=== PATIENT | male | born 1980 | race Caucasian/White ===

== ENCOUNTER 2020-09-26 01:47 | Emergency (ER) | payer SELFPAY ==
[~2020-09-26] VITALS: Ht 203.2 cm; Wt 118.0 kg
[~2020-09-26 01:47] MED LIST: CLOT15CR23 TP; MUPI22OI2 TP; OXYC1TAB15 PO
[2020-09-26 01:50] VITALS: BP 146/84
[2020-09-26] MEDS ORDERED: AMOX500T PO (02:21)
[2020-09-26] MEDS ORDERED: TRAM-48 PO (02:21)
--- NOTE | 2020-09-26 02:24 | PHYS DOC ---
Past Medical History Past Surgical History: No Surgical History Smoking Status: Current Every Day Smoker Alcohol Use: Heavy General Adult EDM: Chief Complaint: EARACHE/EAR PAIN HPI: HPI: Patient is a 40 year old male presents with a chief complaint of left ear pain x3 days. Patient without complaints of fevers and chills. Review of Systems: Review of Systems: Constitutional: Denies fever or chills. [] Eyes: Denies change in visual acuity. [] HENT: Denies nasal congestion or sore throat. [Positive ear pain] Respiratory: Denies cough or shortness of breath. [] Cardiovascular: Denies chest pain or edema. [] GI: Denies abdominal pain, nausea, vomiting, bloody stools or diarrhea. [] : Denies dysuria. [] Musculoskeletal: Denies back pain or joint pain. [] Integument: Denies rash. [] Neurologic: Denies headache, focal weakness or sensory changes. [] Endocrine: Denies polyuria or polydipsia. [] Lymphatic: Denies swollen glands. [] Psychiatric: Denies depression or anxiety. [] Heart Score: C/O Chest Pain: N/A Risk Factors: Risk Factors: DM, Current or recent (<one month) smoker, HTN, HLP, family history of CAD, obesity. Risk Scores: Score 0 - 3: 2.5% MACE over next 6 weeks - Discharge Home Score 4 - 6: 20.3% MACE over next 6 weeks - Admit for Clinical Observation Score 7 - 10: 72.7% MACE over next 6 weeks - Early Invasive Strategies Allergies: Allergies: Allergies Coded Allergies Type Severity Reaction Last Updated Verified No Known Drug Allergies 09/26/20 No Physical Exam: PE: Constitutional: Well developed, well nourished, no acute distress, non-toxic appearance. [] HENT: Normocephalic, atraumatic, bilateral external ears normal, oropharynx moist, no oral exudates, nose normal. [TM erythema on the left] Eyes: PERRLA, EOMI, conjunctiva normal, no discharge. [] Neck: Normal range of motion, no tenderness, supple, no stridor. [] Cardiovascular:Heart rate regular rhythm, no murmur [] Lungs & Thorax: Bilateral breath sounds clear to auscultation [] Abdomen: Bowel sounds normal, soft, no tenderness, no masses, no pulsatile masses. [] Skin: Warm, dry, no erythema, no rash. [] Back: No tenderness, no CVA tenderness. [] Extremities: No tenderness, no cyanosis, no clubbing, ROM intact, no edema. [] Neurologic: Alert and oriented X 3, normal motor function, normal sensory function, no focal deficits noted. [] Psychologic: Affect normal, judgement normal, mood normal. [] Current Patient Data: Vital Signs: Vital Signs Date Time Temp Pulse Resp B/P (MAP) Pulse Ox O2 Delivery O2 Flow Rate FiO2 09/26/20 01:50 100.4 106 20 146/84 98 Room Air 100.4 EKG: EKG: [] Radiology/Procedures: Radiology/Procedures: [] Course & Med Decision Making: Course & Med Decision Making Pertinent Labs and Imaging studies reviewed. (See chart for details) [] Treated with prescription Amoxil and Ultram Dragon Disclaimer: Dragon Disclaimer: This electronic medical record was generated, in whole or in part, using a voice recognition dictation system. Departure Departure Impression: Primary Impression: Otitis media Disposition: HOME / SELF CARE / HOMELESS Condition: STABLE Referrals: NO PCP (PCP) Patient Instructions: Otitis Media, Adult Scripts Tramadol Hcl (ULTRAM) 50 Mg Tablet 1 TAB PO PRN Q6HRS PRN for pain MDD 4 Tablet(s) for 7 Days, #14 TAB 0 Refills Prov: RAHEEM FERNANDEZ DO 09/26/20 Amoxicillin (AMOXICILLIN) 500 Mg Tablet 1 TAB PO BID, #20 TAB Prov: RAHEEM FERNANDEZ DO 09/26/20 RAHEEM FERNANDEZ DO Sep 26, 2020 02:24
== END 2020-09-26 02:33 | disposition home or self-care (01) ==
LOC: ER 01:47
DX: H66.92 Otitis media, unspecified, left ear (principal); F17.200 Nicotine dependence, unspecified, uncomplicated
CPT/HCPCS: 99283

== ENCOUNTER 2020-12-07 17:02 | Emergency (ER) | payer SELFPAY ==
[~2020-12-07] VITALS: Ht 203.2 cm; Wt 113.0 kg
[~2020-12-07 17:02] MED LIST changes: +AMOX500T PO; +TRAM-48 PO
--- NOTE | 2020-12-07 17:38 | PHYS DOC ---
Past Medical History Past Surgical History: No Surgical History Smoking Status: Current Every Day Smoker Alcohol Use: Heavy General Adult EDM: Chief Complaint: FEVER HPI: HPI: Patient is a 40 year old male who presents to the ED today complaining of fevers, body aches, chills, sore throat, symptoms began today. Patient denies any chest pain or shortness of breath. Reports being unvaccinated from COVID- 19. Review of Systems: Review of Systems: Constitutional: Reports fever, body aches and chills Eyes: Denies change in visual acuity. [] HENT: Reports sore throat. Denies nasal congestion Respiratory: Reports cough denies shortness of breath. [] Cardiovascular: Denies chest pain or edema. [] GI: Denies abdominal pain, nausea, vomiting, bloody stools or diarrhea. [] : Denies dysuria. [] Musculoskeletal: Denies back pain or joint pain. [] Integument: Denies rash. [] Neurologic: Denies headache, focal weakness or sensory changes. [] Psychiatric: Denies depression or anxiety. [] Heart Score: C/O Chest Pain: N/A Risk Factors: Risk Factors: DM, Current or recent (<one month) smoker, HTN, HLP, family history of CAD, obesity. Risk Scores: Score 0 - 3: 2.5% MACE over next 6 weeks - Discharge Home Score 4 - 6: 20.3% MACE over next 6 weeks - Admit for Clinical Observation Score 7 - 10: 72.7% MACE over next 6 weeks - Early Invasive Strategies Allergies: Allergies: Allergies Coded Allergies Type Severity Reaction Last Updated Verified No Known Drug Allergies 09/26/20 No Physical Exam: PE: Constitutional: Well developed, well nourished, no acute distress, non-toxic appearance. [] HENT: Normocephalic, atraumatic, bilateral external ears normal, oropharynx moist, no oral exudates, nose normal. [] Eyes: PERRLA, EOMI, conjunctiva normal, no discharge. [] Neck: Normal range of motion, no tenderness, supple, no stridor. [] Cardiovascular:Heart rate regular rhythm, no murmur [] Lungs & Thorax: Bilateral breath sounds clear to auscultation [] Abdomen: Bowel sounds normal, soft, no tenderness, no masses, no pulsatile masses. [] Skin: Warm, dry, no erythema, no rash. [] Back: No tenderness, no CVA tenderness. [] Extremities: No tenderness, no cyanosis, no clubbing, ROM intact, no edema. [] Neurologic: Alert and oriented X 3, normal motor function, normal sensory function, no focal deficits noted. [] Psychologic: Affect normal, judgement normal, mood normal. [] EKG: EKG: [] Radiology/Procedures: Radiology/Procedures: []PROCEDURE: CHEST AP ONLY EXAMINATION: Chest radiograph. VIEWS: Single view COMPARISON: None INDICATION:40 years, Male, fever FINDINGS: Normal cardiomediastinal silhouette. Subsegmental atelectasis versus scarring in the left lung base. No focal consolidation. No pleural effusion or pneumothorax . No acute osseous process. IMPRESSION: No acute cardiopulmonary process. Electronically signed by: Kaleb Jaquez MD (12/07/2020 6:32 PM) [facility] DICTATED and SIGNED BY: KALEB JAQUEZ MD DATE: 12/07/20 [id number] 0 Course & Med Decision Making: Course & Med Decision Making Pertinent Labs and Imaging studies reviewed. (See chart for details) This a 40-year-old male patient presented to the ED today with fever, sore throat, body aches and chills, symptoms began today. Temperature on arrival to the ED 102.3. Heart rate in the 90s. O2 sats 98% on room air and above. Blood pressure 139/79 Chest x-ray negative for any acute findings, negative influenza AB, negative rapid Covid test. Patient was discharged to home. Instructed to quarantine himself until the PCR Covid test comes back. Supportive care measures like good hand hygiene, pushing fluids and resting recommended. Provided return precautions and discharged in stable condition. Dragon Disclaimer: Dragon Disclaimer: This electronic medical record was generated, in whole or in part, using a voice recognition dictation system. Departure Departure Impression: Primary Impression: Fever Qualified Codes: R50.9 - Fever, unspecified Additional Impressions: Body aches Sore throat Disposition: HOME / SELF CARE / HOMELESS Condition: STABLE Referrals: NO PCP (PCP) follow up with your doctor in 1-2 weeks Patient Instructions: Fever, Adult, [id number] Additional Instructions: You were evaluated in the emergency room, your chest x-ray was negative for any acute findings. You have a pending Covid PCR test. Please quarantine yourself until you get results from us. In the meantime rest, push fluids, maintain good hand hygiene and follow-up with your primary care doctor in 1 to 2 weeks. Come back to the emergency room at any point symptoms worsen Scripts Prednisone (PREDNISONE) 50 Mg Tablet 1 TAB PO DAILY, #4 TAB Prov: JANICE BELLE APRN 12/07/20 JANICE BELLE APRN Dec 07, 2020 17:38
[2020-12-07] MEDS ORDERED: IBUPROFEN 200 MG TABLET. PO ONE (17:45)
[2020-12-07] MEDS ORDERED: predniSONE 20 MG TABLET PO ONE (17:45)
[2020-12-07] MEDS ORDERED: ACETAMINOPHEN 500 MG TABLET PO ONE (17:45)
[2020-12-07 18:17] LABS: INFLUENZA A PATIENT NEGATIVE (NEGATIVE); INFLUENZA B PATIENT NEGATIVE (NEGATIVE)
--- NOTE | 2020-12-07 18:34 | RAD ---
EXAMINATION: Chest radiograph. VIEWS: Single view COMPARISON: None INDICATION:40 years, Male, fever FINDINGS: Normal cardiomediastinal silhouette. Subsegmental atelectasis versus scarring in the left lung base. No focal consolidation. No pleural effusion or pneumothorax. No acute osseous process. IMPRESSION: No acute cardiopulmonary process. Electronically signed by: Kaleb Jaquez MD (12/07/2020 6:32 PM) [facility]
[2020-12-07 19:00] VITALS: BP 109/52
[2020-12-07] MEDS ORDERED: PRED50TA PO (19:13)
--- NOTE | 2020-12-08 15:26 | NUR ---
IP: Patient notified of negative COVID19 test result. Verbalized understanding.
== END 2020-12-07 19:21 | disposition home or self-care (01) ==
LOC: ER 17:02
DX: R50.9 Fever, unspecified (principal); Z20.822 Contact with and (suspected) exposure to COVID-19; M79.10 Myalgia, unspecified site; J02.9 Acute pharyngitis, unspecified; F17.200 Nicotine dependence, unspecified, uncomplicated; F10.20 Alcohol dependence, uncomplicated; Y90.9 Presence of alcohol in blood, level not specified
CPT/HCPCS: 71045; 87426; 87804; 99284; J7512; U0003; U0005

== ENCOUNTER 2020-12-16 22:42 | Emergency (ER) | payer SELFPAY ==
[~2020-12-16] VITALS: Ht 203.2 cm; Wt 113.8 kg
[~2020-12-16 22:42] MED LIST changes: +PRED50TA PO
[2020-12-16 22:45] VITALS: BP 156/79
== END 2020-12-17 00:18 | disposition left against medical advice (07) ==
LOC: ER 22:42
DX: R10.9 Unspecified abdominal pain (principal); R55 Syncope and collapse; R22.40 Localized swelling, mass and lump, unspecified lower limb; Z53.21 Procedure and treatment not carried out due to patient leaving prior to being seen by health care provider